=== PATIENT | female | born 1995 | race Caucasian/White ===

== ENCOUNTER 2023-03-05 14:35 | Emergency (ER) | payer BC ==
[~2023-03-05] VITALS: Ht 157.5 cm; Wt 63.5 kg
[2023-03-05 14:59] VITALS: BP_SYST 129
== END 2023-03-05 16:00 | disposition left against medical advice (07) ==
LOC: SED 14:35
DX: H57.11 Ocular pain, right eye (principal); Z53.21 Procedure and treatment not carried out due to patient leaving prior to being seen by health care provider
CPT/HCPCS: 99281